=== PATIENT | female | born 2000 | race Caucasian/White ===

== ENCOUNTER 2020-12-18 02:41 | Inpatient (IN) ==
--- NOTE | 2020-12-18 03:06 | Emergency Department Note ---
Impression & Plan Mood disorder, Deliberate self-cutting ED Provider Note NAME: KEVIN FERNÁNDEZ AGE: 20 SEX: F : 2000 ARRIVES VIA: Walk-In INFORMANT: Patient, friend ED PROVIDER(S): Terence Hurtado MD CHIEF COMPLAINT: Suicidal thoughts, cutting self HPI: This is a 20-year-old female who presents emergency department complaining of cutting herself. Patient reports she cut herself superficially to her left forearm. She reports her tetanus is up-to-date. The patient reports she has become increasingly depressed. She reports she had been on meds at one point including Wellbutrin however she stopped taking them because she felt like they were not doing anything. She admits to suicidal thoughts tonight though does n ot have a specific plan. She denies suicidal ideation. She also admits to drinking alcohol this evening. She reports she has not taken anything or done anything to calm her thoughts. She reports nothing seems to make the thoughts better or worse. ROS: See above HPI for pertinent positives & negatives. A total of 10 systems reviewed and were otherwise negative. PAST MEDICAL HISTORY: See Below PAST SURGICAL HISTORY: See Below FAMILY HISTORY: See Below SOCIAL HISTORY: See Below HOME MEDICATIONS: See Below ALLERGIES: See Below VITALS: See Below PHYSICAL EXAMINATION: VITAL SIGNS - Vital signs and nursing notes were reviewed. GENERAL - 20-year-old female appearing stated age who is in no acute distress. Communicates well with provider and answers questions appropriately. SKIN - 2 superficial cuts to left forearm HEAD - NC/AT. EYES - PERRL with EOMI bilaterally. Sclera anicteric. Palpebral conjunctiva pink and moist with no injection noted. EARS - No deformities of external structures noted on gross examination bilaterally. NOSE - Midline and without cyanosis. No epistaxis or purulent drainage noted. Septum midline without deviation or septal hematoma noted. MOUTH/OROPHARYNX - Without perioral cyanosis. Buccal mucosa pink and moist and without leukoplakia. Tongue midline with equal elevation of palate bilaterally. No tonsillar hypertrophy, erythema, or exudates noted. NECK - Neck with FROM. Supple to palpation. lymphadenopathy noted. No nuchal rigidity. LUNGS - Chest wall symmetric without accessory muscle use, intercostals retractions, or central cyanosis. Normal vesicular breath sounds CTA B/L. No wheezes, rales, or rhonchi appreciated. CARDIAC - RRR with S1/S2. No murmur, rubs, or gallops appreciated. ABDOMEN - Abdominal contour without pulsations or visible masses. BS normoactive all four quadrants. No tenderness, palpable masses, hepatosplenomegaly, or ascites noted. EXTREMITIES - No clubbing or peripheral cyanosis. No pretibial edema present. +3/5 radial, posterior tibial, and dorsalis pedis pulses palpated throughout. +5/5 strength noted in UE/LE bilaterally. NEUROLOGIC - Cranial nerves II through XII grossly intact. Sensory intact to light touch throughout. Patellar reflexes +2/4. PSYCH - A&Ox3 and cooperates fully with examiner. Pt is very pleasant and interacts well with examiner. MEDICAL DECISION MAKING: Patient was seen and evaluated as above in room A6. Review was performed of nursing notes and vital signs. I did review pertinent previous visits and patient history. After obtaining a thorough history and physical examination the above work up was performed. This is a 20-year-old female who presents emergency department complaining of suicidal thoughts. The patient was medically cleared by me. She was independently evaluated by psychiatric case management who felt that the patient should be admitted to the hospital. Pt was signed out to Dr Quiles at change of shift. The patient was evaluated during a period of high volume and high acuity during the global COVID-19 pandemic, and that diagnosis was suspected/considered upon their initial presentation. Their evaluation, treatment and testing was consistent with current guidelines for patients who present with complaints or symptoms that may be related to COVID-19. Patient was seen while provider was wearing PPE. Triage Nursing notes reviewed. Prior medical records reviewed Vital Signs: reviewed and remarkable for no significant abnormalities Differential diagnosis: Mood disorder, infection, hypoglycemia, electrolyte abnormalities, cardiac sources, intracerebral event, toxicologic, trauma, neurologic, as well as other pathologies. ER treatment provided: See below Laboratory studies: As stated above and show below. Past Med/Surg History Medical History (Updated 12/18/20 @ 07:14 by Terence Hurtado MD) Anxiety Bloody stools Constipation Depression Nausea and vomiting after administration of anesthetic agent Surgical History (Updated 10/13/18 @ 11:21 by Celia Chairez RN) History of ankle surgery x2 on right History of ankle surgery left History of nasal cauterization History of tonsillectomy History of wisdom tooth extraction Family History (Updated 10/13/18 @ 11:21 by Celia Chairez RN) Aunt Family history of reaction to anesthesia BP drops Social History Smoking Status: Never smoker Second Hand Exposure: Yes (father smoked); Hx Alcohol Use: Yes Alcohol type: wine Hx Substance Use: No Preferred Language: Romanian Communication Ability: 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 Beliefs That Will Affect Care: None Current Living Situation: Other Current Living Situation Comment: Lives with 2 roommates, [employer] student Feels Safe at Home: Yes Assistive Devices: Contacts and Glasses Allergies Allergies Allergy/AdvReac Type Severity Reaction Status Date / Time No Known Allergies Allergy Verified 10/13/18 11:15 Home Meds Home Medications Medication Instructions Recorded Confirmed No Known Home Medications 12/18/20 12/18/20 Results & Data (ED) Vital Signs Vital Signs - 24 hr 12/18/20 02:44 Temperature 36.8 C Temperature Source Temporal Artery Scan Pulse Rate 111 H Respiratory Rate 18 Respiratory Effort / Characteristics Non-Labored Spontaneous Respiratory Depth Normal Blood Pressure 139/74 Blood Pressure Mean 95 Pulse Oximetry 98 Oxygen Delivery Method Room Air Sepsis Recent Fever Within 48 Hours No Sepsis New/Unexplained Change in Mental Status No Sepsis Action Taken by Nursing No Action Required Laboratory Data Result diagrams: 12/18/20 03:05 12/18/20 03:05 Lab Results 12/18/20 12/18/20 12/18/20 Range/Units 02:53 02:53 03:05 WBC 4.15 L (4.8-10.8) K/uL RBC 4.58 (4.2-5.4) M/uL Hgb 13.3 (12.0-16.0) g/dL Hct 38.2 (37-47) % MCV 83.4 (80-100) fL MCH 29.0 (25-34) pg MCHC 34.8 (32-36) g/dL RDW Std Deviation 38.7 (36.4-46.3) fL RDW Coeff of [place] 12.8 (11.5-14.5) % Plt Count 267 (130-400) K/uL MPV 9.2 (7.4-10.4) fL Immature Gran % (Auto) 0.0 % Neut % (Auto) 58.3 % Lymph % (Auto) 31.6 % [place] % (Auto) 4.3 % Eos % (Auto) 5.3 % Baso % (Auto) 0.5 % Neut # (Auto) 2.42 (1.4-6.5) K/uL Lymph # (Auto) 1.31 (1.2-3.4) K/uL [place] # (Auto) 0.18 (0.11-0.59) K/uL Eos # (Auto) 0.22 (0-0.5) K/uL Baso # (Auto) 0.02 (0-0.2) K/uL Immature Gran # (Auto) 0.00 (0.00-0.02) K/uL Sodium (136-145) mmol/L Potassium (3.5-5.1) mmol/L Chloride (98-107) mmol/L Carbon Dioxide (21-32) mmol/L Anion Gap (3-11) BUN (7-18) mg/dl Creatinine (0.6-1.2) mg/dl Est Cr Clr Drug Dosing ml/min Est GFR ( Amer) Est GFR (Non-Af Amer) BUN/Creatinine Ratio (10-20) Glucose (70-99) mg/dl Calcium (8.5-10.1) mg/dl Total Bilirubin (0.2-1) mg/dl AST (15-37) U/L ALT (12-78) U/L Alkaline Phosphatase (45-117) U/L Total Protein (6.4-8.2) gm/dl Albumin (3.4-5.0) gm/dl Globulin (2.5-4.0) gm/dl Albumin/Globulin Ratio (0.9-2) TSH (0.300-4.500) uIu/ml HCG, Qual (Negative) Urine Color Yellow Urine Appearance Cloudy A (Clear) Urine pH 7.5 (4.5-7.5) Ur Specific [place] 1.022 (1.000-1.030) Urine Protein Trace H (Negative) Urine Glucose (UA) Negative (Negative) Urine Ketones Trace H (Negative) Urine Blood Negative (Negative) Urine Nitrite Negative (Negative) Urine Bilirubin Negative (Negative) Urine Urobilinogen Negative (Negative) Ur Leukocyte Esterase 1+ H (Negative) Urine WBC (Auto) 5-10 H (0-5) /hpf Urine RBC (Auto) 0-4 (0-4) /hpf U Hyaline Cast (Auto) 0 (0-5) /lpf U Epithel Cells (Auto) >30 H (0-5) /lpf Urine Bacteria (Auto) 1+ H (Negative) Urine Mucus Present A (None Prsent) Salicylates (2.8-20) mg/dl Urine Opiates Screen Neg (Neg) Ur Methadone, Qual Neg (Neg) Acetaminophen (10-30) ug/ml Urine Barbiturates Neg (Neg) Ur Phencyclidine (PCP) Neg (Neg) U Amphetamin/Meth Scrn Neg (Neg) MDMA (Ecstasy) Screen Neg (Neg) U Benzodiazepines Scrn Neg (Neg) Ur Cocaine Metabolite Neg (Neg) U Marijuana (THC) Screen Neg (Neg) Ethyl Alcohol mg/dL (0-3) mg/dl COVID-19 Eval Order SARS-CoV-2 (PCR) (Negative) Influenza Type A (PCR) (Neg) Influenza Type B (PCR) (Neg) RSV (RT-PCR) (Neg) 12/18/20 12/18/20 12/18/20 Range/Units 03:05 03:05 03:05 WBC (4.8-10.8) K/uL RBC (4.2-5.4) M/uL Hgb (12.0-16.0) g/dL Hct (37-47) % MCV (80-100) fL MCH (25-34) pg MCHC (32-36) g/dL RDW Std Deviation (36.4-46.3) fL RDW Coeff of [place] (11.5-14.5) % Plt Count (130-400) K/uL MPV (7.4-10.4) fL Immature Gran % (Auto) % Neut % (Auto) % Lymph % (Auto) % [place] % (Auto) % Eos % (Auto) % Baso % (Auto) % Neut # (Auto) (1.4-6.5) K/uL Lymph # (Auto) (1.2-3.4) K/uL [place] # (Auto) (0.11-0.59) K/uL Eos # (Auto) (0-0.5) K/uL Baso # (Auto) (0-0.2) K/uL Immature Gran # (Auto) (0.00-0.02) K/uL Sodium 144 (136-145) mmol/L Potassium 3.5 (3.5-5.1) mmol/L Chloride 112 H (98-107) mmol/L Carbon Dioxide 26 (21-32) mmol/L Anion Gap 6.0 (3-11) BUN 6 L (7-18) mg/dl Creatinine 0.88 (0.6-1.2) mg/dl Est Cr Clr Drug Dosing 90.9 ml/min Est GFR ( Amer) 108.1 Est GFR (Non-Af Amer) 93.3 BUN/Creatinine Ratio 7.2 L (10-20) Glucose 105 H (70-99) mg/dl Calcium 8.6 (8.5-10.1) mg/dl Total Bilirubin 0.6 (0.2-1) mg/dl AST 7 L (15-37) U/L ALT 20 (12-78) U/L Alkaline Phosphatase 54 (45-117) U/L Total Protein 7.9 (6.4-8.2) gm/dl Albumin 4.3 (3.4-5.0) gm/dl Globulin 3.6 (2.5-4.0) gm/dl Albumin/Globulin Ratio 1.2 (0.9-2) TSH 1.810 (0.300-4.500) uIu/ml HCG, Qual (Negative) Urine Color Urine Appearance (Clear) Urine pH (4.5-7.5) Ur Specific [place] (1.000-1.030) Urine Protein (Negative) Urine Glucose (UA) (Negative) Urine Ketones (Negative) Urine Blood (Negative) Urine Nitrite (Negative) Urine Bilirubin (Negative) Urine Urobilinogen (Negative) Ur Leukocyte Esterase (Negative) Urine WBC (Auto) (0-5) /hpf Urine RBC (Auto) (0-4) /hpf U Hyaline Cast (Auto) (0-5) /lpf U Epithel Cells (Auto) (0-5) /lpf Urine Bacteria (Auto) (Negative) Urine Mucus (None Prsent) Salicylates < 1.7 L (2.8-20) mg/dl Urine Opiates Screen (Neg) Ur Methadone, Qual (Neg) Acetaminophen < 2 L (10-30) ug/ml Urine Barbiturates (Neg) Ur Phencyclidine (PCP) (Neg) U Amphetamin/Meth Scrn (Neg) MDMA (Ecstasy) Screen (Neg) U Benzodiazepines Scrn (Neg) Ur Cocaine Metabolite (Neg) U Marijuana (THC) Screen (Neg) Ethyl Alcohol mg/dL 94.0 H (0-3) mg/dl COVID-19 Eval Order SARS-CoV-2 (PCR) (Negative) Influenza Type A (PCR) (Neg) Influenza Type B (PCR) (Neg) RSV (RT-PCR) (Neg) 12/18/20 12/18/20 12/18/20 Range/Units 03:05 06:00 06:00 WBC (4.8-10.8) K/uL RBC (4.2-5.4) M/uL Hgb (12.0-16.0) g/dL Hct (37-47) % MCV (80-100) fL MCH (25-34) pg MCHC (32-36) g/dL RDW Std Deviation (36.4-46.3) fL RDW Coeff of [place] (11.5-14.5) % Plt Count (130-400) K/uL MPV (7.4-10.4) fL Immature Gran % (Auto) % Neut % (Auto) % Lymph % (Auto) % [place] % (Auto) % Eos % (Auto) % Baso % (Auto) % Neut # (Auto) (1.4-6.5) K/uL Lymph # (Auto) (1.2-3.4) K/uL [place] # (Auto) (0.11-0.59) K/uL Eos # (Auto) (0-0.5) K/uL Baso # (Auto) (0-0.2) K/uL Immature Gran # (Auto) (0.00-0.02) K/uL Sodium (136-145) mmol/L Potassium (3.5-5.1) mmol/L Chloride (98-107) mmol/L Carbon Dioxide (21-32) mmol/L Anion Gap (3-11) BUN (7-18) mg/dl Creatinine (0.6-1.2) mg/dl Est Cr Clr Drug Dosing ml/min Est GFR ( Amer) Est GFR (Non-Af Amer) BUN/Creatinine Ratio (10-20) Glucose (70-99) mg/dl Calcium (8.5-10.1) mg/dl Total Bilirubin (0.2-1) mg/dl AST (15-37) U/L ALT (12-78) U/L Alkaline Phosphatase (45-117) U/L Total Protein (6.4-8.2) gm/dl Albumin (3.4-5.0) gm/dl Globulin (2.5-4.0) gm/dl Albumin/Globulin Ratio (0.9-2) TSH (0.300-4.500) uIu/ml HCG, Qual Negative (Negative) Urine Color Urine Appearance (Clear) Urine pH (4.5-7.5) Ur Specific [place] (1.000-1.030) Urine Protein (Negative) Urine Glucose (UA) (Negative) Urine Ketones (Negative) Urine Blood (Negative) Urine Nitrite (Negative) Urine Bilirubin (Negative) Urine Urobilinogen (Negative) Ur Leukocyte Esterase (Negative) Urine WBC (Auto) (0-5) /hpf Urine RBC (Auto) (0-4) /hpf U Hyaline Cast (Auto) (0-5) /lpf U Epithel Cells (Auto) (0-5) /lpf Urine Bacteria (Auto) (Negative) Urine Mucus (None Prsent) Salicylates (2.8-20) mg/dl Urine Opiates Screen (Neg) Ur Methadone, Qual (Neg) Acetaminophen (10-30) ug/ml Urine Barbiturates (Neg) Ur Phencyclidine (PCP) (Neg) U Amphetamin/Meth Scrn (Neg) MDMA (Ecstasy) Screen (Neg) U Benzodiazepines Scrn (Neg) Ur Cocaine Metabolite (Neg) U Marijuana (THC) Screen (Neg) Ethyl Alcohol mg/dL (0-3) mg/dl COVID-19 Eval Order CovFluRsv at [facility] SARS-CoV-2 (PCR) NEGATIVE (Negative) Influenza Type A (PCR) Negative (Neg) Influenza Type B (PCR) Negative (Neg) RSV (RT-PCR) Negative (Neg) Discharge Plan Visit Data Chief Complaint: Mental Health Evaluation Stated Complaint: DEPRESSION AND ANXIETY ED Provider: Terence Hurtado Discharge Problem: Mood disorder, Deliberate self-cutting Forms Stand Alone Forms: My [facility], Suicide Prevention Resources Prescriptions Prescriptions: No Action No Known Home Medications RF: 0
[2020-12-18 03:09] LABS: Appearance Urine Cloudy (Clear); Bacteria Urine Automated 1+ (Negative); Bilirubin Urine Negative (Negative); Blood Urine Negative (Negative); Color Urine Yellow; Epithelial Cell Urine Auto >30 /lpf (0-5); Glucose Urine UA Negative (Negative); Ketones Urine Trace (Negative); Leukocyte Esterase Urine 1+ (Negative); Nitrite Urine Negative (Negative); Specific Gravity Urine 1.022 (1.000-1.030); Urobilinogen Urine Negative (Negative); pH Urine 7.5 (4.5-7.5)
[2020-12-18 03:16] LABS: Protein Urine Trace (Negative)
[2020-12-18 03:18] LABS: Basophils # (auto) 0.02 K/uL (0-0.2); Basophils % (auto) 0.5 %; Eosinophils # (auto) 0.22 K/uL (0-0.5); Eosinophils % (auto) 5.3 %; Hematocrit (blood only) 38.2 % (37-47); Hemoglobin 13.3 g/dL (12.0-16.0); Lymphocytes # (auto) 1.31 K/uL (1.2-3.4); Lymphocytes % (auto) 31.6 %; Mean Corpuscular Hgb Conc 34.8 g/dL (32-36); Mean Corpuscular Volume 83.4 fL (80-100); Mean Platelet Volume 9.2 fL (7.4-10.4); Monocytes # (auto) 0.18 K/uL (0.11-0.59); Monocytes % (auto) 4.3 %; Neutrophils # (auto) 2.42 K/uL (1.4-6.5); Neutrophils % (auto) 58.3 %; Platelet Count 267 K/uL (130-400); RDW Coefficient of Variation 12.8 % (11.5-14.5); RDW Standard Deviation 38.7 fL (36.4-46.3); Red Blood Count 4.58 M/uL (4.2-5.4); White Blood Count 4.15 K/uL (4.8-10.8)
[2020-12-18 03:18] LABS: Cast Urine Automated 0 /lpf (0-5); Mucus Urine Present (None Prsent); RBC Urine Automated 0-4 /hpf (0-4)
[2020-12-18 03:31] LABS: Pregnancy Test, Serum Negative (Negative)
[2020-12-18 03:32] LABS: Amphetamines+Metham, Urine Neg (Neg); Barbiturates, Urine Neg (Neg); Benzodiazepine, Urine Neg (Neg); Cocaine, Urine Neg (Neg); MDMA (Ecstacy), Urine Neg (Neg); Methadone, Urine Neg (Neg); Opiate, Urine Neg (Neg); Phencyclidine, Urine Neg (Neg)
[2020-12-18 03:37] LABS: Albumin Level 4.3 gm/dl (3.4-5.0); BUN Creatinine Ratio 7.2 (10-20); Calcium 8.6 mg/dl (8.5-10.1); Creatinine Clr Calc Pharmacy 90.9 ml/min; Est GFR (African American) 108.1; Est GFR (Non-African American) 93.3; Potassium 3.5 mmol/L (3.5-5.1)
[2020-12-18 03:47] LABS: Albumin Globulin Ratio 1.2 (0.9-2); Bilirubin,Total 0.6 mg/dl (0.2-1); Globulin 3.6 gm/dl (2.5-4.0); Thyroid Stimulating Hormone 1.81 uIu/ml (0.300-4.500); Total Protein 7.9 gm/dl (6.4-8.2)
[2020-12-18 03:51] LABS: Acetaminophen < 2 ug/ml (10-30); Salicylate < 1.7 mg/dl (2.8-20)
[2020-12-18 07:01] LABS: Influenza A virus by PCR Negative (Neg); Influenza B virus by PCR Negative (Neg); RSV by PCR Negative (Neg); SARS CoV2 RNA(COVID-19) InHosp NEGATIVE (Negative)
[2020-12-18] MEDS ORDERED: SODIUM CHLORIDE 0.65% NA SOLN 45 ML (OCEAN) PRN (08:18)
[2020-12-18] MEDS ORDERED: ACETAMINOPHEN 325 MG TAB PO PRN (08:18)
[2020-12-18] MEDS ORDERED: BISMUTH SUBSALICYLATE LIQD 236 ML PO PRN (08:18)
[2020-12-18] MEDS ORDERED: ALUMINUM/MAGNESIUM SUSP 30 ML UDC PO PRN (08:18)
[2020-12-18] MEDS ORDERED: hydrOXYzine HCl 25 MG TAB PO PRN (08:18)
[2020-12-18] MEDS ORDERED: MAGNESIUM HYDROXIDE SUSP 30 ML UDC PO PRN (08:18)
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
--- NOTE | 2020-12-18 09:23 | Emergency Department Note ---
ED Visit Note This patient was signed out to me at shift change by Dr. Hurtado. The patient had been medically cleared and was being evaluated by [facility] for admission. [facility] is going to admit her for further inpatient treatment and evaluation on a voluntary basis. .
[2020-12-18] MEDS ORDERED: VENLAFAXINE HCL XR 37.5 MG CAPXR PO STA (12:55)
[2020-12-18] MEDS: hydrOXYzine HCl 25 MG TAB PO PRN (20:33)
[2020-12-19] MEDS ORDERED: VENLAFAXINE HCL XR 37.5 MG CAPXR PO SCH (09:00)
--- NOTE | 2020-12-19 09:03 | Psychiatric Progress Note ---
Date of Service December 19, 2020 Impression / Recommendations Impression 20-year-old female admitted voluntarily for inpatient psychiatric treatment on 12/18/20 after presenting to the ED with reports of worsening depression and suicidal ideation. Pt did have an act of furtherance by superficially cutting her left forearm. Pt reports the worsening mood is in the context of a break-up 2-3 weeks ago to end a 3 year relationship. Pt admits to a history of depression and received both therapy and medication management in the past, but is not currently active with any providers. Diagnoses at this time seem most consistent with depression, generalized anxiety, and OCD - but ruling out historical diagnoses of PTSD and bipolar II disorder. Pt agreed to a trial of venlafaxine after reviewing clinical impression and treatment recommendations - numerous SSRIs/SNRIs reviewed and patient was provided with handouts. Pt will be encouraged to participate in group and recreational programming. We will encourage patient to involve outpatient supports to discuss discharge and safety planning. She will also require referrals for outpatient psychiatric providers. Inpatient psychiatric treatment is the least restrictive and most appropriate setting for treatment, as patient remains at acute risk of suicide if discharged prematurely. (1) Suicidal ideation: 12/18 - Pt denies acute SI during assessment today, but admits intermittent suicidal thoughts are occurring more frequently with higher intensity. Pt able to contract for safety on our unit, but not outside of the inpatient setting. - Admitted to a locked inpatient behavioral health unit, on q15 minute safety checks - Encourage medication initiation/adjustments as indicated - Encourage participation in group and recreational therapies - Gather collateral information from outpatient providers - Suggest family meeting to involve outpatient supports in safety planning - Arrange appropriate aftercare 12/19 - Pt denying SI today, continue to encourage development of healthy and effective coping strategies (2) Depressive disorder: 12/18 - Pt reports history of major depressive disorder, continues to be an appropriate diagnosis. Differential includes dysthymic disorder, bipolar disorder, underlying personality disorder. Pt denies criteria consistent with a bipolar I/II disorder diagnosis at this time. Continue to monitor for fluctuations in mood. - Reviewed risks, benefits, and potential side effects of various antidepressive agents - pt reports preference for venlafaxine after being provided with patient handouts. Will initiate venlafaxine ER 37.5mg daily, starting dose today. Will titrate as tolerated/indicated. - Encourage patient to participate in group programming - Encourage involvement of outpatient supports in a meeting to discuss safety and discharge planning - Will require outpatient follow-up for psychiatry and therapy - Will encourage patient to complete a safety plan prior to discharge 12/19 - Pt reports that although her anxiety is increased related to her parents learning of her hospitalization, her mood overall has improved. - Pt denies SI at this time - Titrating venlafaxine 75mg qAM - Pt involved close friend in a support meeting today, friend was reportedly supportive - Coordinate appointments with outpatient psychiatric providers (3) Generalized anxiety disorder: 12/18 - Pt meets criteria for generalized anxiety disorder. Pt reports historical diagnosis of PTSD due to episodes of "blacking out", which are described as more of a vasovagal response to yelling/arguing. Denies other criteria consistent with PTSD in particular. Pt screened for narcolepsy/cataplexy - Scored a 10 on [place] Sleepiness Scale, indicating high-normal score. Scored a 55 of [place] Narcolepsy Scale - inconsistent with narcolepsy with cataplexy though continue to consider as possible diagnosis. - Initiating venlafaxine ER 37.5mg daily, starting today - titrating as tolerated/indicated. - Utilize hydroxyzine as needed for acute anxiety/insomnia - Encourage participation in group programming and assist with development of healthy and effective coping strategies. 12/19 - Anxiety exacerbated today in the setting of parents learning of her admission and becoming intrusive with care. Pt has received support from staff regarding this. - Titrating venlafaxine as above, offer hydroxyzine as needed (4) Obsessive compulsive disorder: 12/18 - Pt reports excessive "checking" behaviors and other compulsions that do seem to be suggestive of an obsessive compulsive disorder. Pt does not personally feel her behaviors reach the severity of this diagnosis. Continue to offer insight and education. - Venlafaxine ER as above - Outpatient counseling and development of healthy and effective coping strategies. 12/19 - Titrating venlafaxine as above (5) Abnormal urinalysis: 12/18 - Urine sent for culture - UA: cloudy appearance, trace protein and ketones, 1+ leukocyte esterase, 5-10 WBCs, 1+ bacteria, and >30 epithelial cells. - Will follow-up on culture. Pt reports frequent urination, but states this is constant and she perceives it to be related to anxiety. 12/19 - Pin-point growth - reincubating Risk Factors Assessment Male: No : Yes Do You Have Access To A Gun?: Yes (has a personal gun, friend has temporarily secured related to recent SI) Health Problems: No Mental Health Diagnoses: Yes Substance Use Disorders: No Previous Attempt: No Family History of Suicide: No Previous Psychiatric Hospitalization: Yes Hopelessness: No Smoker: No Protective Factors Assessment Yazidism Beliefs: Yes : No Responsible for Young Children: No Employed: Yes Stable Relationships: No Supportive Family: No Interval History Identifying Information KEVIN FERNÁNDEZ is a 20-year-old F who currently lives in [place] and has a history of psychiatric treatment for depression and anxiety. Pt was admitted on 12/18/20 on a 201 voluntary commitment for worsening depression and SI in the setting of a recent break-up. Chief Complaint "Um, other than all this, I thought I was doing really well." Review of Systems Notes Constitutional: denied Cardiovascular: denied Respiratory: denied Gastrointestinal: denied Neurological: denied Psychiatric: denies symptoms other than stated above Total of at least 10 systems reviewed, pertinent positives as above and in HPI. Sleep Information Total Hours of Sleep: 7.75 Meal Information Percent Meal Consumed - Lunch: 100 Percent Meal Consumed - Dinner: 90 Subjective Subjective Patient was seen & assessed and interval progress reviewed with treatment team. Staff report the patient has been reserved, but has participated in group programming. Pt had a support meeting with a close friend this morning which reportedly went well. Received report from staff that parents have apparently been attempting to reach out to patient and filed a missing person's report. They learned of the patient's admission and presented to the front desk attendant of the osp[facility]. Pt reportedly permitted police to inform her parents that she is safe, but continues to decline direct contact. Pt was seen today following these events to assess progress since admission. The patient admits "Um, other than all this, I thought I was doing really well." Pt reports improvement in mood and resolution of SI, but admits her anxiety is significantly worse today as she's trying to navigate her parents' learning of her admission and intrusively attempting to reach out to her. Pt states she feels bad that her friend has been caught in the stress of the situation as well. Pt was encouraged to work with staff to process concerns as needed - she was also informed that if desired we could defer phone calls. Pt states "I think it would be worse not to know anything." Pt states that her goal for today was to have a good meeting. She feels this was accomplished and admitted to being reassured by her friend sharing 'If I'm there and I'm listening, you're not a burden.' Pt reported willingness to titrate her venlafaxine to 75mg daily. She denied other needs or concerns today. Physical Exam Psychiatric Orientation: alert, oriented x 3 and cooperative Apperance: appropriately dressed, appropriately groomed and appeared stated age Eye Contact: good eye contact Motor Behavior: no abnormal motor movements (observed while sitting on edge of bed) Speech: normal rate/rhythm/volume of speech Affect: + anxious affect (reserved, timid) and mood congruent with affect Mood: + anxious mood (increased situational stress related to family's new involvement); no depressed mood (mood improving) Thought Process: goal directed thought process and clear/coherent thought process Thought Content: reality based without delusions; no hopelessness and no worthlessness Suicidal Thoughts: denies suicidal thoughts and denies suicidal intent Homicidal Thoughts: denies homicidal thoughts Hallucinations: no auditory hallucinations and no visual hallucinations Cognition: attention grossly intact and language grossly intact Estimated Intelligence: consistent with education level Insight: + fair insight Judgement: + fair judgement Vital Signs (Past 24 Hours) Last Vital Signs Temp 36.5 C 12/19/20 06:36 Pulse 94 H 12/19/20 06:37 Resp 16 12/19/20 06:36 BP 115/76 12/19/20 06:37 Pulse Ox 98 12/18/20 07:39 Results & Data ([facility]) Current Inpatient Medications Current Inpatient Medications: Current Inpatient Medications Acetaminophen (Acetaminophen 325 Mg Tab) 650 mg PO Q4H PRN PRN Reason: Headache or Minor Fever Stop: 01/17/21 08:17 Al Hydrox/Mg Hydrox/Simethicone (Aluminum/Magnesium Susp 30 Ml Udc) 30 ml PO Q4H PRN PRN Reason: GI Upset Stop: 01/17/21 08:17 Bismuth Subsalicylate (Bismuth Subsalicylate Liqd 236 Ml) 15 ml PO PRN PRN PRN Reason: Loose Stool Stop: 01/17/21 08:17 Hydroxyzine HCl (Hydroxyzine Hcl 25 Mg Tab) 50 mg PO HSZ PRN PRN Reason: Insomnia Stop: 01/17/21 08:17 Last Admin: 12/18/20 20:33 Dose: 50 mg Documented by: Hydroxyzine HCl (Hydroxyzine Hcl 25 Mg Tab) 25 mg PO Q4H PRN PRN Reason: Anxiety Stop: 01/17/21 08:17 Magnesium Hydroxide (Magnesium Hydroxide Susp 30 Ml Udc) 30 ml PO DAILY PRN PRN Reason: Constipation Stop: 01/17/21 08:17 Sodium Chloride (Sodium Chloride 0.65% Na Soln 45 Ml ([place])) 1 - 2 sprays NA PRN PRN PRN Reason: Nasal Dryness/Congestion Stop: 01/17/21 08:17 Venlafaxine HCl (Venlafaxine Hcl Xr 37.5 Mg Capxr) 37.5 mg PO QAM ANDREW Stop: 01/18/21 08:59 Last Admin: 12/19/20 08:38 Dose: 37.5 mg Documented by: Mental Health & Subst Abuse Tx Therapist Name of Therapist: last therapist was through [facility], Senior Cisco Network Engineer Name of Senior Cisco Network Engineer: N/A Post Discharge Appointments Primary Care Physician Name Of Family Doctor: none
[2020-12-19] MEDS: hydrOXYzine HCl 25 MG TAB PO PRN (21:53)
[2020-12-20] MEDS: VENLAFAXINE HCL XR 75 MG CAPXR PO SCH (08:51)
--- NOTE | 2020-12-20 09:00 | Psychiatric Progress Note ---
Date of Service December 20, 2020 Impression / Recommendations Impression 20-year-old female admitted voluntarily for inpatient psychiatric treatment on 12/18/20 after presenting to the ED with reports of worsening depression and suicidal ideation. Pt did have an act of furtherance by superficially cutting her left forearm. Pt reports the worsening mood is in the context of a break-up 2-3 weeks ago to end a 3 year relationship. Pt admits to a history of depression and received both therapy and medication management in the past, but is not currently active with any providers. Diagnoses at this time seem most consistent with depression, generalized anxiety, and OCD - but ruling out historical diagnoses of PTSD and bipolar II disorder. Pt agreed to a trial of venlafaxine after reviewing clinical impression and treatment recommendations - numerous SSRIs/SNRIs reviewed and patient was provided with handouts. Pt will be encouraged to participate in group and recreational programming. We will encourage patient to involve outpatient supports to discuss discharge and safety planning. She will also require referrals for outpatient psychiatric providers. Inpatient psychiatric treatment is the least restrictive and most appropriate setting for treatment, as patient remains at acute risk of suicide if discharged prematurely. (1) Suicidal ideation: 12/18 - Pt denies acute SI during assessment today, but admits intermittent suicidal thoughts are occurring more frequently with higher intensity. Pt able to contract for safety on our unit, but not outside of the inpatient setting. - Admitted to a locked inpatient behavioral health unit, on q15 minute safety checks - Encourage medication initiation/adjustments as indicated - Encourage participation in group and recreational therapies - Gather collateral information from outpatient providers - Suggest family meeting to involve outpatient supports in safety planning - Arrange appropriate aftercare 12/19 - 12/20 - Pt denying SI today, continue to encourage development of healthy and effective coping strategies (2) Depressive disorder: 12/18 - Pt reports history of major depressive disorder, continues to be an appropriate diagnosis. Differential includes dysthymic disorder, bipolar disorder, underlying personality disorder. Pt denies criteria consistent with a bipolar I/II disorder diagnosis at this time. Continue to monitor for fluctuations in mood. - Reviewed risks, benefits, and potential side effects of various antidepressive agents - pt reports preference for venlafaxine after being provided with patient handouts. Will initiate venlafaxine ER 37.5mg daily, starting dose today. Will titrate as tolerated/indicated. - Encourage patient to participate in group programming - Encourage involvement of outpatient supports in a meeting to discuss safety and discharge planning - Will require outpatient follow-up for psychiatry and therapy - Will encourage patient to complete a safety plan prior to discharge 12/19 - Pt reports that although her anxiety is increased related to her parents learning of her hospitalization, her mood overall has improved. - Pt denies SI at this time - Titrating venlafaxine 75mg qAM - Pt involved close friend in a support meeting today, friend was reportedly supportive - Coordinate appointments with outpatient psychiatric providers 12/20 - Continue venlafaxine 75mg daily - Awaiting intake appointment with David for psychiatric follow-up - Continue to encourage group participation and development of healthy coping skills. (3) Generalized anxiety disorder: 12/18 - Pt meets criteria for generalized anxiety disorder. Pt reports historical diagnosis of PTSD due to episodes of "blacking out", which are described as more of a vasovagal response to yelling/arguing. Denies other criteria consistent with PTSD in particular. Pt screened for narcolepsy/cataplexy - Scored a 10 on [place] Sleepiness Scale, indicating high-normal score. Scored a 55 of [place] Narcolepsy Scale - inconsistent with narcolepsy with cataplexy though continue to consider as possible diagnosis. - Initiating venlafaxine ER 37.5mg daily, starting today - titrating as tolerated/indicated. - Utilize hydroxyzine as needed for acute anxiety/insomnia - Encourage participation in group programming and assist with development of healthy and effective coping strategies. 12/19 - Anxiety exacerbated today in the setting of parents learning of her admission and becoming intrusive with care. Pt has received support from staff regarding this. - Titrating venlafaxine as above, offer hydroxyzine as needed 12/20 - Anxiety more pronounced yesterday, improved somewhat today as situational stress related to patient's has settled a bit - Continue to encourage use of healthy and effective coping skills (4) Obsessive compulsive disorder: 12/18 - Pt reports excessive "checking" behaviors and other compulsions that do seem to be suggestive of an obsessive compulsive disorder. Pt does not personally feel her behaviors reach the severity of this diagnosis. Continue to offer insight and education. - Venlafaxine ER as above - Outpatient counseling and development of healthy and effective coping strategies. 12/19 - Titrating venlafaxine as above (5) Abnormal urinalysis: 12/18 - Urine sent for culture - UA: cloudy appearance, trace protein and ketones, 1+ leukocyte esterase, 5-10 WBCs, 1+ bacteria, and >30 epithelial cells. - Will follow-up on culture. Pt reports frequent urination, but states this is constant and she perceives it to be related to anxiety. 12/19 - Pin-point growth - reincubating 12/20 - Culture grew high counts of mixed probable skin frances - pt asymptomatic Risk Factors Assessment Male: No : Yes Do You Have Access To A Gun?: Yes (has a personal gun, friend has temporarily secured related to recent SI) Health Problems: No Mental Health Diagnoses: Yes Substance Use Disorders: No Previous Attempt: No Family History of Suicide: No Previous Psychiatric Hospitalization: Yes Hopelessness: No Smoker: No Protective Factors Assessment Alevism Beliefs: Yes : No Responsible for Young Children: No Employed: Yes Stable Relationships: No Supportive Family: No Interval History Identifying Information KEVIN FERNÁNDEZ is a 20-year-old F who currently lives in [place] and has a history of psychiatric treatment for depression and anxiety. Pt was admitted on 12/18/20 on a 201 voluntary commitment for worsening depression and SI in the setting of a recent break-up. Chief Complaint "I feel better now." Review of Systems Notes Constitutional: denied Cardiovascular: denied Respiratory: denied Gastrointestinal: denied Neurological: denied Psychiatric: denies symptoms other than stated above Total of at least 10 systems reviewed, pertinent positives as above and in HPI. Sleep Information Total Hours of Sleep: 7 Sleep Comments: pt on q-15 minute checks Meal Information Percent Meal Consumed - Breakfast: 100 Percent Meal Consumed - Lunch: 70 Percent Meal Consumed - Dinner: 85 Subjective Subjective Patient was seen & assessed and interval progress reviewed with nursing and social work. Staff report the patient had demonstrated increased anxiety related to parents (whom patient had declined to notify about her hospitalization) had been intrusively calling her supports and filed a missing person's report related to her not responding to messages. Pt processed with staff and utilized coping skills and communication with positive supports to manage this acute stressor. Pt was seen today to assess progress since admission. Pt states "I feel better now." She states that the stress from yesterday seems to have settled a bit and she is feeling more calm. Pt admits that she is still very frustrated at her parents' attempts to contact her, but "I'm not going to let that interfere with what I came here for." Pt states "my mom has always been manipulative and makes everything about her. I think the healthiest thing for me right now is to keep my focus on my goals, and I'll deal with them after I leave." Pt states that her mood has been relatively stable. Anxiety is obviously worsened recently, but she admits to feeling proud she was able to utilize healthy coping skills to manage the stress from yesterday. Pt denies SI as well as other concerns today. Physical Exam Psychiatric Orientation: alert, oriented x 3 and cooperative Apperance: appropriately dressed, appropriately groomed and appeared stated age Eye Contact: + fair eye contact Motor Behavior: steady gait and station and no abnormal motor movements Speech: normal rate/rhythm/volume of speech Affect: + anxious affect (still presenting as timid and reserved) Mood: + depressed mood and + anxious mood but improved from yesterday Thought Process: goal directed thought process and clear/coherent thought process Thought Content: reality based without delusions; no hopelessness and no worthlessness Suicidal Thoughts: denies suicidal thoughts and denies suicidal intent Homicidal Thoughts: denies homicidal thoughts Hallucinations: no auditory hallucinations and no visual hallucinations Cognition: attention grossly intact and language grossly intact Estimated Intelligence: consistent with education level Insight: + fair insight Judgement: + fair judgement Vital Signs (Past 24 Hours) Last Vital Signs Temp 36.7 C 12/20/20 06:45 Pulse 93 H 12/20/20 06:46 Resp 16 12/20/20 06:45 BP 119/83 12/20/20 06:46 Pulse Ox 98 12/18/20 07:39 Results & Data ([facility]) Current Inpatient Medications Current Inpatient Medications: Current Inpatient Medications Acetaminophen (Acetaminophen 325 Mg Tab) 650 mg PO Q4H PRN PRN Reason: Headache or Minor Fever Stop: 01/17/21 08:17 Al Hydrox/Mg Hydrox/Simethicone (Aluminum/Magnesium Susp 30 Ml Udc) 30 ml PO Q4H PRN PRN Reason: GI Upset Stop: 01/17/21 08:17 Bismuth Subsalicylate (Bismuth Subsalicylate Liqd 236 Ml) 15 ml PO PRN PRN PRN Reason: Loose Stool Stop: 01/17/21 08:17 Hydroxyzine HCl (Hydroxyzine Hcl 25 Mg Tab) 50 mg PO HSZ PRN PRN Reason: Insomnia Stop: 01/17/21 08:17 Last Admin: 12/19/20 21:53 Dose: 50 mg Documented by: Hydroxyzine HCl (Hydroxyzine Hcl 25 Mg Tab) 25 mg PO Q4H PRN PRN Reason: Anxiety Stop: 01/17/21 08:17 Magnesium Hydroxide (Magnesium Hydroxide Susp 30 Ml Udc) 30 ml PO DAILY PRN PRN Reason: Constipation Stop: 01/17/21 08:17 Sodium Chloride (Sodium Chloride 0.65% Na Soln 45 Ml ([place])) 1 - 2 sprays NA PRN PRN PRN Reason: Nasal Dryness/Congestion Stop: 01/17/21 08:17 Venlafaxine HCl (Venlafaxine Hcl Xr 75 Mg Capxr) 75 mg PO QAM ANDREW Stop: 01/19/21 08:59 Last Admin: 12/20/20 08:51 Dose: 75 mg Documented by: Mental Health & Subst Abuse Tx Therapist Name of Therapist: last therapist was through [facility], Copywriting Intern Name of Copywriting Intern: N/A Post Discharge Appointments Primary Care Physician Name Of Family Doctor: none
[2020-12-20] MEDS: hydrOXYzine HCl 25 MG TAB PO PRN (20:22)
[2020-12-21] MEDS: VENLAFAXINE HCL XR 75 MG CAPXR PO SCH (08:58)
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
== END 2020-12-21 13:56 | disposition home or self-care (01) | DRG 885 ==
LOC: ED 02:41 → 3S 08:18